=== PATIENT | female | born 1985 | race Caucasian/White ===

== ENCOUNTER 2016-11-09 17:01 | Emergency (ER) | payer BC ==
[~2016-11-09] VITALS: Ht 162.6 cm; Wt 90.7 kg
[2016-11-09 17:20] VITALS: BP 138/86
--- NOTE | 2016-11-09 18:01 | NUR ---
Patient ambulated to bed 02.
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
[2016-11-09 18:27] VITALS: BP 138/86
--- NOTE | 2016-11-09 18:27 | NUR ---
Patient discharged with v/s stable. Written and verbal after care instructions given and explained. Patient alert, oriented and verbalized understanding of instructions. Ambulatory with steady gait. All questions addressed prior to discharge. ID band removed. Patient advised to follow up with PMD. Rx of ZOFRAN, TRAMADOL given. Patient educated on indication of medication including possible reaction and side effects. Opportunity to ask questions provided and answered.
== END 2016-11-09 18:27 | disposition home or self-care (01) ==
LOC: MED 17:01
DX: R51 Headache (principal); R03.0 Elevated blood-pressure reading, without diagnosis of hypertension; G43.909 Migraine, unspecified, not intractable, without status migrainosus

== ENCOUNTER 2020-06-29 00:32 | Emergency (ER) | payer BC, MEDICAID ==
[~2020-06-29] VITALS: Ht 162.6 cm; Wt 90.3 kg
[2020-06-29 00:36] VITALS: BP 136/80
--- NOTE | 2020-06-29 00:40 | NUR ---
PT AMBULATED TO BED 07 WITH STEADY GAIT.
--- NOTE | 2020-06-29 00:45 | NUR ---
34 YO F BIB SELF WITH C/C OF CHEST PAIN RADIATING TO LEFT ARM 02/06 X2DAYS, CONSTANT, SHARP AND WORSENED WHEN ANXIOUS. PT STATED SHE WAS AT REST WHEN PAIN BEGAN. PT STATED THIS HAS HAPPENED IN THE PAST WHEN SHE WAS ANXIOUS. CURRENTLY FEELS UNDER A LOT OF STRESS. PT DENIES TAKING MEDICATION FOR PAIN. S1 S2 HEARD, LUNG SOUNDS CLEAR BILAT, CAP REFILL <3 SECS, RADIAL PULSES STRONG BILAT. DENIES N/V. PT PLACED IN GOWN. PLACED ON HOME HEALTH TRAVEL PT AND PULSE OX. BED LOCKED IN LOWEST POSITION, SIDE RAILS X2. HX: ANXIETY RX: DENIED NKA
--- NOTE | 2020-06-29 01:06 | NUR ---
ERMD AT BEDSIDE EVALUATING PT.
--- NOTE | 2020-06-29 01:19 | NUR ---
CHEST XRAY AT BEDSIDE.
[2020-06-29 01:54] VITALS: BP 117/71
--- NOTE | 2020-06-29 01:54 | NUR ---
Patient discharged with v/s stable. Written and verbal after care instructions given and explained. Patient alert, oriented and verbalized understanding of instructions. Ambulatory with steady gait. All questions addressed prior to discharge. ID band removed. Patient advised to follow up with PMD. Rx of HYDROXYZINE HYDROCHLORIDE given. Patient educated on indication of medication including possible reaction and side effects. Opportunity to ask questions provided and answered.
== END 2020-06-29 01:54 | disposition home or self-care (01) ==
LOC: MED 00:32
DX: R07.9 Chest pain, unspecified (principal); F41.9 Anxiety disorder, unspecified
CPT/HCPCS: 71045; 93005; 99283; Q0092

== ENCOUNTER 2020-09-15 18:13 | Emergency (ER) | payer MEDICAID ==
[~2020-09-15] VITALS: Ht 162.6 cm; Wt 83.9 kg
[2020-09-15 18:21] VITALS: BP 127/86
[2020-09-15 19:10] VITALS: BP 127/86
--- NOTE | 2020-09-15 19:10 | NUR ---
Patient discharged with v/s stable. Written and verbal after care instructions given and explained. Patient alert, oriented and verbalized understanding of instructions. Ambulatory with steady gait. All questions addressed prior to discharge. ID band removed. Patient advised to follow up with PMD. Rx of ROBAXIN, AZITHROMYCIN given. Patient educated on indication of medication including possible reaction and side effects. Opportunity to ask questions provided and answered.
== END 2020-09-15 19:10 | disposition home or self-care (01) ==
LOC: MED 18:13
DX: S29.011A Strain of muscle and tendon of front wall of thorax, initial encounter (principal); J02.8 Acute pharyngitis due to other specified organisms; Z20.828 Contact with and (suspected) exposure to other viral communicable diseases; X58.XXXA Exposure to other specified factors, initial encounter; Y93.89 Activity, other specified; Y92.89 Other specified places as the place of occurrence of the external cause; Y99.8 Other external cause status
CPT/HCPCS: 71045; 99283

== ENCOUNTER 2020-12-16 11:22 | Emergency (ER) | payer MEDICAID ==
[~2020-12-16] VITALS: Ht 162.6 cm; Wt 85.7 kg
[2020-12-16 11:28] VITALS: BP 122/77
[2020-12-16] MEDS ORDERED: FAMOTIDINE 20 MG/2 ML VIAL IVP ONE (12:10)
[2020-12-16] MEDS ORDERED: NACL 0.9% 1,000 ML IV SCH (12:10)
[2020-12-16] MEDS ORDERED: KETOROLAC 30 MG/ML VIAL IVP ONE (12:10)
[2020-12-16 12:35] LABS: BASOPHILS % (AUTO) 0.6 % (0.0-2.0); EOSINOPHILS % (AUTO) 0.3 % (0.0-4.0); HEMATOCRIT 40.4 % (36-48); HEMOGLOBIN 13.6 g/dL (12.0-16.0); LYMPHOCYTES # (AUTO) 1.4 K/uL (2.5-16.5); LYMPHOCYTES % (AUTO) 21.6 % (20.5-51.1); MEAN CORPUSCULAR HEMOGLOBIN 31 pg (27-31); MEAN CORPUSCULAR HGB CONC 34 g/dL (33-37); MEAN CORPUSCULAR VOLUME 92.8 fL (80-94); MONOCYTES # (AUTO) 0.4 K/uL (0.8-1.0); MONOCYTES % (AUTO) 5.9 % (1.7-9.3); NEUTROPHILS # (AUTO) 4.7 K/uL (1.8-7.7); NEUTROPHILS % (AUTO) 71.6 % (42.2-75.2); PLATELET COUNT (AUTO) 275 K/uL (140-450); RED BLOOD CELL COUNT(AUTO) 4.35 MIL/uL (4.20-5.40); RED CELL DISTRIBUTION WIDTH 12.6 % (11.6-13.7); WHITE BLOOD COUNT (AUTO) 6.5 K/uL (4.8-10.8)
[2020-12-16 12:51] LABS: ALBUMIN 3.9 g/dL (3.4-5.0); ANION GAP 10.7 (8-16); CARBON DIOXIDE 27.1 mmol/L (21-32); CREATININE 0.8 mg/dL (0.6-1.3); POTASSIUM 3.8 mmol/L (3.5-5.1); TOTAL BILIRUBIN 0.5 mg/dL (0.0-1.0)
[2020-12-16] MEDS ORDERED: ONDA4TAB PO (13:14)
[2020-12-16] MEDS ORDERED: FAMO40TA12 PO (13:14)
[2020-12-16 13:44] VITALS: BP 122/77
== END 2020-12-16 13:44 | disposition home or self-care (01) ==
LOC: MED 11:22
DX: K29.70 Gastritis, unspecified, without bleeding (principal); Z79.899 Other long term (current) drug therapy
CPT/HCPCS: 36415; 76705; 80053; 81002; 81025; 83690; 85025; 96361; 96374; 96375; 99284; J1885; J3490; J7030

== ENCOUNTER 2021-10-06 09:42 | Emergency (ER) | payer MEDICAID ==
[~2021-10-06] VITALS: Ht 162.6 cm; Wt 84.4 kg
[~2021-10-06 09:42] MED LIST: FAMO40TA12 PO; ONDA4TAB PO
[2021-10-06 09:43] VITALS: BP 128/86
--- NOTE | 2021-10-06 09:50 | NUR ---
36 Y/O FEMALE C/O VAGINAL BLEEDING SINCE WEDNESDAY. STATES 01/06 CRAMPING. REPORTS CLOTS. TOOK PLAN B PILL ON WEDNESDAY MEDHX: EJ ESCALERA
--- NOTE | 2021-10-06 09:52 | NUR ---
PT AMBULATED TO ER BED 5, PT GIVEN URINE CUP FOR SAMPLE
[2021-10-06] MEDS ORDERED: IBUP-2213 PO (10:27)
[2021-10-06] MEDS ORDERED: MEDR10TA PO (10:27)
[2021-10-06] MEDS ORDERED: CIPR500T4 PO (10:27)
[2021-10-06] MEDS ORDERED: ONDA8TAB87 PO (10:27)
--- NOTE | 2021-10-06 10:45 | NUR ---
Patient discharged with v/s stable. Written and verbal after care instructions ABOUT UTI AND DYSFUNCTIONAL UTERINE BLEEDING given and explained. Patient alert, oriented and verbalized understanding of instructions. Ambulatory with steady gait. All questions addressed prior to discharge. ID band removed. Patient advised to follow up with PMD. Rx of CIPRO, IBUPROFEN, PROVERA, AND ZOFRAN given.
--- NOTE | 2021-10-06 10:46 | NUR ---
The patient's care was reviewed and supervised by Pilar Chu RN.
== END 2021-10-06 10:45 | disposition home or self-care (01) ==
LOC: MED 09:42
DX: N39.0 Urinary tract infection, site not specified (principal); N93.8 Other specified abnormal uterine and vaginal bleeding; Z79.899 Other long term (current) drug therapy
CPT/HCPCS: 81002; 81025; 99283

== ENCOUNTER 2022-06-18 09:41 | Emergency (ER) | payer MEDICAID ==
[~2022-06-18] VITALS: Ht 162.6 cm; Wt 92.2 kg
[~2022-06-18 09:41] MED LIST changes: +CIPR500T4 PO; +IBUP-2213 PO; +MEDR10TA PO; +ONDA8TAB87 PO
[2022-06-18 09:57] VITALS: BP 121/77
--- NOTE | 2022-06-18 10:05 | NUR ---
36/F C/O VAGINAL BLEED ACCOMPANIED BY 2/10 LOWER ABD PAIN AND BACK PAIN ONSET 2 WKS. DENIES . AAO4, AMBULATORY, AFEBRILE. URINE COLLECTED PMH: DENIES
[2022-06-18 12:03] LABS: BASOPHILS % (AUTO) 0.7 % (0.0-2.0); EOSINOPHILS % (AUTO) 0.3 % (0.0-4.0); LYMPHOCYTES # (AUTO) 1.7 K/uL (2.5-16.5); LYMPHOCYTES % (AUTO) 24.9 % (20.5-51.1); MEAN CORPUSCULAR HEMOGLOBIN 31 pg (27-31); MEAN CORPUSCULAR HGB CONC 34 g/dL (33-37); MEAN CORPUSCULAR VOLUME 89.5 fL (80-94); MONOCYTES # (AUTO) 0.5 K/uL (0.8-1.0); MONOCYTES % (AUTO) 7.2 % (1.7-9.3); NEUTROPHILS # (AUTO) 4.6 K/uL (1.8-7.7); NEUTROPHILS % (AUTO) 66.9 % (42.2-75.2); PLATELET COUNT (AUTO) 252 K/uL (140-450); RED BLOOD CELL COUNT(AUTO) 4.25 MIL/uL (4.20-5.40); RED CELL DISTRIBUTION WIDTH 12.9 % (11.6-13.7); WHITE BLOOD COUNT (AUTO) 6.8 K/uL (4.8-10.8)
[2022-06-18 12:13] LABS: ANION GAP 11.7 (8-16); CARBON DIOXIDE 26.9 mmol/L (21-32); CREATININE 0.8 mg/dL (0.6-1.3); POTASSIUM 4.6 mmol/L (3.5-5.1)
[2022-06-18 13:38] LABS: APPEARANCE,URINE CLEAR (CLEAR); BILIRUBIN,URINE NEGATIVE (NEGATIVE); BLOOD, URINE 3+ (NEGATIVE); COLOR,URINE AMBER (YELLOW); LEUKOCYTE ESTERASE ,URINE NEGATIVE (NEGATIVE); NITRITE, URINE NEGATIVE (NEGATIVE); UGLUCOSE NEGATIVE (NEGATIVE)
[2022-06-18 13:51] LABS: RBC,URINE 50-80 /HPF (0-5); WBC,URINE 0-5 /HPF (0-5)
[2022-06-18] MEDS ORDERED: IBUP-2213 PO (14:20)
[2022-06-18 14:21] VITALS: BP 129/75
[2022-06-18] MEDS ORDERED: MEDR10TA PO (14:28)
--- NOTE | 2022-06-18 14:30 | NUR ---
Patient discharged with v/s stable. Written and verbal after care instructions given and explained. Patient alert, oriented and verbalized understanding of instructions. Ambulatory with steady gait. All questions addressed prior to discharge. ID band removed. Patient advised to follow up with PMD. Patient educated on indication of medication including possible reaction and side effects. Opportunity to ask questions provided and answered.
== END 2022-06-18 14:30 | disposition home or self-care (01) ==
LOC: MED 09:41
DX: N93.8 Other specified abnormal uterine and vaginal bleeding (principal); Z79.899 Other long term (current) drug therapy
CPT/HCPCS: 36415; 76856; 80048; 81001; 81025; 85025; 93976; 99284; Q0092

== ENCOUNTER 2022-08-31 12:41 | Emergency (ER) | payer MEDICAID ==
[~2022-08-31] VITALS: Ht 172.7 cm; Wt 83.9 kg
[2022-08-31 12:44] VITALS: BP 121/66
[2022-08-31] MEDS ORDERED: ONDANSETRON 4 MG ODT PO ONE (13:00)
--- NOTE | 2022-08-31 13:07 | NUR ---
PT AMBULATED TO RESTROOM FOR URINE SAMPLE
[2022-08-31 13:33] LABS: BASOPHILS % (AUTO) 0.3 % (0.0-2.0); EOSINOPHILS % (AUTO) 0.1 % (0.0-4.0); HEMATOCRIT 36.4 % (36-48); HEMOGLOBIN 12.1 g/dL (12.0-16.0); LYMPHOCYTES % (AUTO) 17.7 % (20.5-51.1); MEAN CORPUSCULAR HEMOGLOBIN 30 pg (27-31); MEAN CORPUSCULAR HGB CONC 33 g/dL (33-37); MONOCYTES # (AUTO) 0.9 K/uL (0.8-1.0); MONOCYTES % (AUTO) 7.5 % (1.7-9.3); NEUTROPHILS # (AUTO) 8.6 K/uL (1.8-7.7); NEUTROPHILS % (AUTO) 74.4 % (42.2-75.2); PLATELET COUNT (AUTO) 247 K/uL (140-450); RED BLOOD CELL COUNT(AUTO) 4.09 MIL/uL (4.20-5.40); RED CELL DISTRIBUTION WIDTH 13.7 % (11.6-13.7); WHITE BLOOD COUNT (AUTO) 11.5 K/uL (4.8-10.8)
[2022-08-31 13:58] LABS: CANNABINOID, URINE NEGATIVE ng/mL (NEG <=50); COCAINE, URINE POSITIVE ng/mL (NEG <=300); OPIATE, URINE NEGATIVE ng/mL (NEG <=2000); PHENCYCLIDINE SCREEN,URINE NEGATIVE ng/mL (NEG <=25)
[2022-08-31 13:59] LABS: BARBITURATE, URINE NEGATIVE ng/ml (NEG <=200); BENZODIAZEPINE, URINE NEGATIVE ng/mL (NEG <=200)
[2022-08-31 13:59] LABS: ALBUMIN 3.9 g/dL (3.4-5.0); ANION GAP 17.4 (8-16); CARBON DIOXIDE 23.1 mmol/L (21-32); CREATININE 0.8 mg/dL (0.6-1.3); POTASSIUM 3.5 mmol/L (3.5-5.1); TOTAL BILIRUBIN 0.5 mg/dL (0.0-1.0)
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
--- NOTE | 2022-08-31 14:19 | NUR ---
37/F PRESENTS TO ED WITH C/O CHEST PAIN, N/V SINCE THIS MORNING. PATIENT ADMITS TO CONSUMING A SMALL AMOUNT OF ALCOHOL THROUGHOUT THE WEEKEND AND WOKE UP WITH SYMPTOMS. PATIENT DENIES SOB, FEVERS OR RECENT SICK CONTACTS, DENIES DRUG USE. PATIENT STATES SHE DID NOT TAKE ANYTHING FOR SYMPTOMS.
[2022-08-31] MEDS ORDERED: LORazepam 1 MG TAB PO ONE (14:20)
--- NOTE | 2022-08-31 14:45 | NUR ---
[place] PD CALLED AND NOTIFIED OF PT CLAIM. PD TO BE SENT OUT FOR FOLLOW UP REPORT. SPOKE W/ DINORA, DISPATCHER.
[2022-08-31 15:00] VITALS: BP 111/62
--- NOTE | 2022-08-31 16:35 | NUR ---
PT AMB TO RESTROOM
--- NOTE | 2022-08-31 16:46 | NUR ---
EMILIANO HOOKER CALLED FOR UPDATED ETA "WE DONT HAVE ANYONE AVAILABLE AT THIS TIME" "SHE CAN COME IN". SPOKE W/ DINORA .PA AND PT MADE AWARE.
[2022-08-31] MEDS ORDERED: ACET-10509 PO (16:53)
[2022-08-31] MEDS ORDERED: ONDA-188 PO (16:53)
--- NOTE | 2022-08-31 17:00 | NUR ---
Patient discharged with v/s stable. Written and verbal after care instructions FOR STIMULANT USE DISORDER AND N/V given and explained. Patient alert, oriented and verbalized understanding of instructions. Ambulatory with steady gait. All questions addressed prior to discharge. ID band removed. Patient advised to follow up with PMD. Rx of TYLENOL XTRA STRENGTH AND ZOFRAN given. Opportunity to ask questions provided and answered.
--- NOTE | 2022-08-31 17:01 | NUR ---
The patient's care was reviewed and supervised by Pilar Chu RN.
== END 2022-08-31 17:00 | disposition home or self-care (01) ==
LOC: MED 12:41
DX: R11.2 Nausea with vomiting, unspecified (principal); F14.10 Cocaine abuse, uncomplicated; R07.9 Chest pain, unspecified; R51.9 Headache, unspecified; Z79.899 Other long term (current) drug therapy
CPT/HCPCS: 36415; 80053; 80305; 83690; 85025; 93005; 99284; Q0162

== ENCOUNTER 2022-12-09 01:55 | Emergency (ER) | payer MEDICAID ==
[~2022-12-09] VITALS: Ht 162.6 cm; Wt 81.6 kg
[2022-12-09 01:55] VITALS: BP 110/84
[~2022-12-09 01:55] MED LIST changes: +ACET-10509 PO; +ONDA-188 PO
--- NOTE | 2022-12-09 01:55 | NUR ---
ROLY HOOKER. TO CHAIR B
--- NOTE | 2022-12-09 01:55 | NUR ---
Beatrice chand in ED - 12/09/22 at 0159 by DUNG JOSUE HOOKER, DYAN. TAKEN TO KAYCE SELBY
--- NOTE | 2022-12-09 02:03 | NUR ---
DR. LU TO EVALUATE AT THIS TIME
--- NOTE | 2022-12-09 02:05 | NUR ---
PATIENT BIB [employer]. PATIENT EXAMINED BY . PATIENT MEDICALLY CLEARED AND RELEASED IN CUSTODY IN STABLE CONDITION. ORIGINAL PRE-BOOK FORM GIVEN TO OFFICER [place], #[id number].
== END 2022-12-09 02:05 ==
LOC: MED 01:55
DX: Z02.89 Encounter for other administrative examinations (principal); R00.0 Tachycardia, unspecified; Z79.899 Other long term (current) drug therapy; Z79.1 Long term (current) use of non-steroidal anti-inflammatories (NSAID); Z79.2 Long term (current) use of antibiotics; V89.2XXA Person injured in unspecified motor-vehicle accident, traffic, initial encounter; Y93.89 Activity, other specified; Y92.410 Unspecified street and highway as the place of occurrence of the external cause; Y99.8 Other external cause status
CPT/HCPCS: 99283

== ENCOUNTER 2023-02-22 00:40 | Emergency (ER) | payer MEDICAID ==
[~2023-02-22] VITALS: Ht 162.6 cm; Wt 86.2 kg
[2023-02-22 00:50] VITALS: BP 115/86; PULSE 83; RESP 17; TEMP 97.8; O2SAT 96
--- NOTE | 2023-02-22 00:53 | NUR ---
TO LOBBY A/W BED AMBULATORY
--- NOTE | 2023-02-22 01:00 | NUR ---
SEEN AND EXAMINED BY MARI
[2023-02-22] MEDS ORDERED: LORazepam 1 MG TAB PO ONE (02:40)
[2023-02-22] MEDS ORDERED: DIPH25TA53 PO (02:47)
[2023-02-22] MEDS ORDERED: ATA10 PO (02:47)
[2023-02-22 03:10] VITALS: BP 115/86; PULSE 83; RESP 17; TEMP 97.8; O2SAT 96
--- NOTE | 2023-02-22 03:10 | NUR ---
Patient discharged with v/s stable. Written and verbal after care instructions given and explained. Patient alert, oriented and verbalized understanding of instructions. Ambulatory with steady gait. All questions addressed prior to discharge. ID band removed. Patient advised to follow up with PMD. Rx of ATARAX, BENADRYL. given. Patient educated on indication of medication including possible reaction and side effects. Opportunity to ask questions provided and answered.
== END 2023-02-22 03:10 | disposition home or self-care (01) ==
LOC: MED 00:40
DX: T78.40XA Allergy, unspecified, initial encounter (principal); R07.89 Other chest pain; R11.2 Nausea with vomiting, unspecified; F41.9 Anxiety disorder, unspecified; Z79.899 Other long term (current) drug therapy; X58.XXXA Exposure to other specified factors, initial encounter
CPT/HCPCS: 71045; 93005; 99283